=== PATIENT | male | born 1995 | race Two or more races ===

== ENCOUNTER 2024-07-15 15:59 | Emergency (ER) | payer OTHER, BC ==
[2024-07-15] MEDS: Diphtheria,Pertussis(Acell),Tetanus Vaccine 0.5 ML Syringe IM ONE (17:25)
[2024-07-15] MEDS: Lidocaine 2% 11 ML Jelly Filled Syringe MUCMEM ONE (18:37)
[2024-07-15] MEDS: Bacitracin Oint 15 GM Tube TOP ONE (19:16)
== END 2024-07-15 19:22 | disposition home or self-care (01) ==
LOC: JD.ED 15:59
DX: S80.02XA Contusion of left knee, initial encounter (principal); S50.812A Abrasion of left forearm, initial encounter; S40.212A Abrasion of left shoulder, initial encounter; S80.212A Abrasion, left knee, initial encounter; S60.512A Abrasion of left hand, initial encounter; Z23 Encounter for immunization; Z79.899 Other long term (current) drug therapy; V29.39XA Other motorcycle (driver) (passenger) injured in unspecified nontraffic accident, initial encounter
CPT/HCPCS: 73030-26-LT; 73030-LT; 73090-26-LT; 73090-LT; 73130-26-LT; 73130-LT; 73562-26-LT; 73562-LT; 90471; 90715; 99283; 99284-25; A9270-GY